=== PATIENT | male | born 1950 ===

== ENCOUNTER 2018-06-19 05:35 | Inpatient (IN) | payer MEDICARE ==
[~2018-06-19 05:35] MED LIST: Buffered Lidocaine 1% SYRIN* 1 ML/SYRINGE INTRADERM ONE; Tranexamic Acid 1,000 MG in NS 0.9% 50 ML* (outpatient use) IV SCH
--- OUTSIDE RECORDS SUMMARY | 2018-06-19 05:38 | XMS REPORT | Continuity of Care Document ---
:1950 External Reference #:[id number] Author Name ISIDRO Prieto Address [address], [place] [address] Care Team Providers Name Role Phone Travis Prather D.O. Primary Care Physician Unavailable Payers Type Date Identification Numbers Payment Provider Subscriber Policy Number: [id number] Medicare Alise Bates PayID: [id number] [address] [place] [address] Policy Number: [id number] [facility] Alise Bates PayID: [id number] [address] [place] [address] Advance Directives Description No Information Available Problems Date Description Provider Status Onset: 02/10/2016 Localized, primary osteoarthritis Bj Rodriguez M.D. Active Onset: 12/05/2015 Spinal stenosis of lumbar region Nick Connelly M.D. Active Family History Date Family Member(s) Problem(s) Comments General Cerebrovascular Accident (CVA) General Cancer Social History Type Date Description Comments Sex Unknown Lives With Occupation Retired ETOH Use Occasionally consumed alcohol in the past Tobacco Use Start: Unknown Patient has never smoked Recreational Drug Use Denies Drug Use Smoking Status Reviewed: 06/13/18 Patient has never smoked Exercise Type/Frequency Exercises sporadically Allergies, Adverse Reactions, Alerts Date Description Reaction Status Severity Comments 12/05/2015 Penicillin Active 12/05/2015 Statins Active Medications Medication Date Status Form Strength Qnty SIG Indications Ordering Provider Atenolol Active Tablets 50mg 1 by Unknown 000 mouth every day Levothyroxine Active Tablets 88mcg 1 by Unknown Sodium 000 mouth every day Meloxicam Active Tablets 15mg once Unknown 000 daily with food prn Aspirin Adult Active Tablets DR 81mg 1 by Unknown Low Dose 000 mouth every day Zyrtec Allergy Active Capsules 10mg 1 by Unknown 000 mouth every day Melatonin ER Active Tablets ER 5mg 1 tab by Unknown 000 mouth prn Magnesium Active Capsules 500mg 1 by Unknown 000 mouth every day prn Losartan Active Tablets 50mg 1 by Unknown Potassium 000 mouth every day Cinnamon Active Capsules 500mg 1 tab Unknown 000 bid Fish Oil Active Capsules DR 1200mg 2 caps Unknown 000 by mouth twice daily Pantoprazole Active Tablets DR 40mg 1 by Unknown Sodium 000 mouth every day Glucosamine Active Capsules 1500Com 1 by Unknown Chondroitin 1500 000 mouth Complex twice a day Nexium 24HR Hx Capsules DR 20mg 1 by Unknown 000 - mouth every 019 day prn Ranitidine HCL Hx Tablets 150mg take one Unknown 000 - tablet prn 018 [place] 3 Hx Capsules 1000mg 1 by Unknown 000 - mouth tid 018 Multi For Him Hx Tablets 1 by Unknown 50+ 000 - mouth every 018 day Vitamin C Hx Tablets 1000mg 1 by Unknown 000 - mouth every 018 day Vitamin E Hx Capsules 200Unit 2 by Unknown 000 - mouth every 018 day Immunizations Description No Information Available Vital Signs Date Vital Result Comment 06/13/2018 1:27pm Height 68 inches 5'8" Weight 234.00 lb Heart Rate 84 /min BP Systolic Recheck 144 mmHg BP Diastolic Recheck 86 mmHg Respiratory Rate 16 /min Body Temperature 98.3 F BMI (Body Mass Index) 35.6 kg/m2 05/12/2018 10:21am Height 68 inches 5'8" Weight 228.00 lb Heart Rate 76 /min BP Systolic Recheck 136 mmHg BP Diastolic Recheck 84 mmHg Respiratory Rate 16 /min Body Temperature 97.7 F BMI (Body Mass Index) 34.7 kg/m2 02/10/2016 1:38pm Height 68 inches 5'8" Weight 230.00 lb Heart Rate 76 /min BP Systolic Recheck 124 mmHg BP Diastolic Recheck 80 mmHg Respiratory Rate 16 /min Body Temperature 97.9 F BMI (Body Mass Index) 35.0 kg/m2 12/05/2015 11:34am Height 68 inches 5'8" Weight 245.31 lb Heart Rate 63 /min BP Systolic Sitting 132 mmHg BP Diastolic Sitting 84 mmHg Respiratory Rate 16 /min Body Temperature 98.1 F Pain Level 0 O2 % BldC Oximetry 96 % BMI (Body Mass Index) 37.3 kg/m2 02/09/2011 2:18pm Height 68 inches 5'8" Weight 250.00 lb Heart Rate 81 /min BP Systolic 162 mmHg BP Diastolic 98 mmHg BMI (Body Mass Index) 38.0 kg/m2 Results Test Date Facility Test Result H/L Range Note CBC Auto Diff 06/06/2018 [facility] White Blood 5.0 10^3/uL N 3.5-10.[address] [place] [address] [phone] Red Blood Count 5.16 10^6/uL N 4.00-5.40 Hemoglobin 16.1 g/dL N 14.0-18.0 Hematocrit 48 % N 42-52 Mean Corpuscular Volume 93 fL N 80-94 Mean Corpuscular Hemoglobin 31 pg N 27-31 Mean Corpuscular HGB Conc 34 g/dL N 31-36 Red Cell Distribution Width 14 % N 10.5-15 Platelet Count 186 10^3/uL N 150-450 Mean Platelet Volume 9.4 fL N 7.4-10.4 Abs Neutrophils 2.5 10^3/uL N 1.5-7.7 Abs Lymphocytes 2.0 10^3/uL N 1.0-4.8 Abs Monocytes 0.4 10^3/uL N 0-0.8 Abs Eosinophils 0.1 10^3/uL N 0-0.6 Abs Basophils 0 10^3/uL N 0-0.2 Abs Nucleated RBC 0 10^3/uL Granulocyte % 49.4 % Lymphocyte % 39.3 % Monocyte % 8.0 % Eosinophil % 2.7 % Basophil % 0.6 % Nucleated Red Blood Cells % 0.1 Inr/Protime 06/06/2018 [facility] Inr 0.94 N 0.77-1.02 [address] [place] [address] [phone] Laboratory test 06/06/2018 [facility] Partial 33.2 seconds N 26.0-36.3 finding [address] [facility] [place] [place] [address] PTT [phone] Comp Metabolic 06/06/2018 [facility] Sodium 135 mmol/L N 135- 145 Panel [address] [place] [address] [phone] Potassium 4.3 mmol/L N 3.5-5.0 Chloride 101 mmol/L N 101-111 Co2 Carbon Dioxide 27 mmol/L N 22-32 Anion Gap 7 mmol/L N 2-11 Glucose 141 mg/dL High 70-100 Blood Urea Nitrogen 28 mg/dL High 6-24 Creatinine 0.96 mg/dL N 0.67-1.17 BUN/Creatinine Ratio 29.2 High 8-20 Calcium 9.7 mg/dL N 8.6-10.3 Total Protein 7.2 g/dL N 6.4-8.9 Albumin 4.3 g/dL N 3.2-5.2 Globulin 2.9 g/dL N 2-4 Albumin/Globulin Ratio 1.5 N 1-3 Total Bilirubin 0.50 mg/dL N 0.2-1.0 Alkaline Phosphatase 55 U/L N 34-104 Alt 28 U/L N 7-52 Ast 20 U/L N 13-39 Egfr Non- 77.9 >60 Egfr 94.3 >60 1 Type & Screen 06/06/2018 [facility] Patient Blood Type O Negative [address] [place] [address] [phone] Antibody Screen NEGATIVE Urinalysis Profile 06/06/2018 [facility] Urine Color Yellow [address] [place] [address] [phone] Urine Appearance Clear Urine Specific [place] 1.026 N 1.010-1.030 Urine pH 5.0 N 5-9 Urine Urobilinogen Negative Negative Urine Ketones Negative Negative Urine Protein Negative Negative Urine Leukocytes Negative Negative Urine Blood 1+ Abnormal Negative Urine Nitrite Negative Negative Urine Bilirubin Negative Negative Urine Glucose Negative Negative Urine White Blood Cell Trace(0-5/hpf) Absent Urine Red Blood Cell 1+(3-5/hpf) Abnormal Absent Urine Bacteria Absent Absent Urine Culture And 06/06/2018 [facility] Urine Culture SEE RESULT [address] [place], [place] [address] [phone] 1 Because ethnic data is not always readily available, this report includes an eGFR for both -Americans and non- Americans. The National Kidney Disease Education Program (NKDEP) does not endorse the use of the MDRD equation for patients that are not between the ages of 18 and 70, are , have extremes of body size, muscle mass, or nutritional status, or are non- or non-. According to the National Kidney Foundation, irrespective of diagnosis, the stage of the disease is based on the level of kidney function: Stage Description GFR(mL/min/1.73 m(2)) 1 Kidney damage with normal or decreased GFR 90 2 Kidney damage with mild decrease in GFR 60-89 3 Moderate decrease in GFR 30-59 4 Severe decrease in GFR 15-29 5 Kidney failure <15 (or dialysis) 2 SEE RESULT BELOW Name: ALISE BATES Raphael : [address]: Bj Rodriguez MD Acct: [id number] Unit: [id number] AGE: 67 Location: [facility] Re06/06/18 SEX: M Status: REG REF SPEC: [id number] INDIRA: 06/06/18-[address]: Bj Rodriguez MD REQ: [id number] RECD: 06/06/18 STATUS: [facility] DR: Travis Prather DO _ SOURCE: URINE SPDESC: ORDERED: Urine Culture Procedure Result Reported Site Urine Culture Final 06/07/18- 0814 ML No Growth (<1,000 CFU/mL) * ML - Main Lab . END OF REPORT DEPARTMENT OF PATHOLOGY, [address] [place] [address] Hubert Hernandez M.D. Director [facility] # [id number] Procedures Date Code Description Status 02/09/2011 07154 Xray Knee 3 Views Completed 02/09/2011 62956 Xray Knee 3 Views Completed Encounters Type Date Location Provider Dx Diagnosis Office Visit 05/12/2018 Orthopedic Rajendra Valerio.0 Bilateral primary 10:30a [facility]rano osteoarthritis of AT [place] knee Office Visit 02/10/2016 Rajendra Auguste.0 Bilateral primary 1:30p [facility]rano osteoarthritis of AT [place] knee Office Visit 02/09/2011 Orthopedic Jose Means, 716.96 Arthropathy Unspec 2:00p Services Of Marcel[facility] Lower Leg MichelleMLex Plan of Treatment Future Appointment(s):07/18/2018 10:30 am - Bj Rodriguez M.D. at [facility] AT Gygqmhaz37/28/2019 7:30 am - ISIDRO Oliver at [facility] C.M.AInna06/19/2018 7:30 am - Bj Rodriguez M.D. at [facility] C.[facility].A.06/13/2018 - Bj Rodriguez M.D.M17.12 Unilateral primary osteoarthritis, left kneeFollow up:4 weeks after surgery
--- OUTSIDE RECORDS SUMMARY | 2018-06-19 05:38 | XMS REPORT | Continuity of Care Document ---
:1950 External Reference #:[id number] Author Name Karoline Frausto Care Team Providers Name Role Phone Travis Prather D.O. Primary Care Physician Unavailable Payers Type Date Identification Numbers Payment Provider Subscriber Policy Number: [id number] Medicare Alise Bates PayID: [id number] [address] [place] [address] Policy Number: [id number] [facility] Alise Bates PayID: [id number] [address] [place] [address] Advance Directives Description No Information Available Problems [...] one Unknown 000 - tablet prn 018 [place] 3 Hx Capsules 1000mg 1 by Unknown [...] H/L Range Note CBC Auto Diff 06/06/2018 [facility] White Blood 5.0 10^3/uL N 3.5-10.[address] [place] [address] [phone] Red Blood Count 5.16 10^6/uL N 4.00-5.40 [...] Red Blood Cells % 0.1 Inr/Protime 06/06/2018 [facility] Inr 0.94 N 0.77-1.[address] [place] [address] [phone] Laboratory test 06/06/2018 [facility] Partial 33.2 seconds N 26.0-36.3 finding 101 [facility] [place] [address] PTT [phone] Comp Metabolic 06/06/2018 [facility] Sodium 135 mmol/L N 135- 145 Panel [address] [place] [address] [phone] Potassium 4.3 mmol/L N 3.5-5.0 Chloride 101 [...] 94.3 >60 1 Type & Screen 06/06/2018 [facility] Patient Blood Type O Negative [address] [place] [address] [phone] Antibody Screen NEGATIVE Urinalysis Profile 06/06/2018 [facility] Urine Color Yellow [address] [place] [address] [phone] Urine Appearance Clear Urine Specific [place] 1.026 N 1.010-1.030 Urine pH 5.0 N 5-9 Urine Urobilinogen Negative Negative Urine Ketones Negative Negative Urine Protein Negative Negative Urine Leukocytes Negative Negative Urine Blood 1+ Abnormal Negative Urine Nitrite Negative Negative Urine Bilirubin Negative Negative Urine Glucose Negative Negative Urine White Blood Cell Trace(0-5/hpf) Absent Urine Red Blood Cell 1+(3-5/hpf) Abnormal Absent Urine Bacteria Absent Absent Urine Culture And 06/06/2018 [facility] Urine Culture SEE RESULT [address] [place] [address] [phone] 1 Because ethnic data is not always [...] 2 SEE RESULT BELOW Name: ALISE BATES : [address]: Bj Rodriguez MD Acct: [id number] Unit: [id number] AGE: 67 Location: [facility] Re06/06/18 SEX: M Status: REG REF SPEC: [id number] INDIRA: 06/06/18-[address]: Bj Rodriguez MD REQ: [id number] RECD: 06/06/18-1040 STATUS: [facility] DR: Travis Prather DO _ SOURCE: URINE SPDES: ORDERED: Urine Culture Procedure Result Reported Site Urine Culture Final 06/07/18- 08 ML No Growth (<1,000 CFU/mL) * ML - Main Lab . END OF REPORT DEPARTMENT OF PATHOLOGY, [address] [place] [address] Hubert Hernandez M.D. Director [facility] # [id number] Procedures Date Code Description Status 02/09/2011 18804 Xray Knee 3 Views Completed 02/09/2011 79246 Xray Knee 3 Views Completed Encounters Type Date Location Provider Dx Diagnosis Office Visit 05/12/2018 Orthopedic Rajendra Valerio.0 Bilateral primary 10:30a [facility] osteoarthritis of AT [place] knee Office Visit 02/10/2016 Orthopedic Cassidy Valerio Bilateral primary 1:30p [facility] Medrano osteoarthritis of AT [place] knee Office Visit 02/09/2011 Orthopedic Jose Means, 716.96 Arthropathy Unspec 2:00p Services [facility] Lower Leg Jessica Plan of Treatment Future Appointment(s):07/18/2018 10:30 am - Bj Rodriguez M.D. at [facility] AT Gpqnlxqq19/28/2019 7:30 am - ISIDRO Oliver at [facility] Of Romulo.MLex06/19/2018 7:30 am - Bj Rodriguez M.D. at [facility] Of C.M.AInna06/13/2018 - Bj Rodriguez M.D.M17.12 Unilateral primary osteoarthritis, left kneeFollow up:4 weeks after surgery
[2018-06-19] MEDS ORDERED: Gabapentin CAP(*) 300 MG PO ONE (06:00)
[2018-06-19] MEDS ORDERED: celeCOXIB CAP* 200 MG PO ONE (06:00)
[2018-06-19] MEDS ORDERED: Lactated Ringers 1000 ML Bag* 1,000 ML IV SCH (06:00)
[2018-06-19] MEDS ORDERED: celeCOXIB CAP* 100 MG PO ONE (06:00)
[2018-06-19] MEDS ORDERED: Acetaminophen IV 1GM/100ML * 1,000 MG/100 ML VIAL IVPB ONE (06:00)
[2018-06-19] MEDS ORDERED: Clindamycin 900 MG/D5W BAG(*) 900 MG/50 ML BAG IVPB ONE (06:32)
[2018-06-19] MEDS ORDERED: celeCOXIB CAP* 100 MG ONE (06:32)
[2018-06-19] MEDS ORDERED: Dexamethasone IV* 4 MG/ML 1 ML (4 MG) ONE (06:32)
[2018-06-19] MEDS ORDERED: Famotidine IV* 10 MG/ML 2 ML (20 mg) ONE (06:32)
[2018-06-19] MEDS ORDERED: Gabapentin CAP(*) 300 MG ONE (06:32)
[2018-06-19] MEDS ORDERED: Acetaminophen IV 1GM/100ML * 100 ML ONE (06:34)
[2018-06-19] MEDS ORDERED: Lidocaine 1% MPF wEPI 200,000* 30 ML SDV ONE (06:55)
[2018-06-19] MEDS ORDERED: Bupivacaine 0.5%* 50 ML VIAL ONE (06:55)
[2018-06-19] MEDS ORDERED: ceFAZolin 2 GM PREMIX in ORs 2 GM/50 ML BAG IVPB ONE (07:06)
[2018-06-19] MEDS: Famotidine IV* 10 MG/ML 2 ML (20 mg) IV SLOW PU ONE ×2 (07:12→15:12)
[2018-06-19] MEDS: Dexamethasone IV* 4 MG/ML 1 ML (4 MG) IV SLOW PU ONE ×2 (07:12→15:12)
[2018-06-19] MEDS ORDERED: Bupivacaine 0.5% SDV PF* 30ML VIAL ONE (07:16)
[2018-06-19] MEDS ORDERED: fentaNYL* 50 MCG/ML 2 ML VIAL (100 MCG VIAL) ONE ×2 (07:20→13:42)
[2018-06-19] MEDS ORDERED: Midazolam* 1 MG/ML 5 ML VIAL (5 MG) ONE ×3 (07:20→10:53)
[2018-06-19] MEDS ORDERED: KETAMINE HCL* 50 MG/ML 10 ML VIAL ONE (07:20)
[2018-06-19] MEDS ORDERED: ROPIVACAINE 5 MG/ML 30 ML BTL (0.5%) ONE (07:26)
[2018-06-19] MEDS ORDERED: HYDROmorphone INJ1* 1 MG/ML SYRINGE IV PRN (08:55)
[2018-06-19] MEDS ORDERED: Naloxone* 0.4 MG/ML 1 ML VIAL IV PRN (08:55)
[2018-06-19] MEDS ORDERED: Ondansetron INJ* 2 MG/ML VIAL IV PRN ×2 (08:55→10:15)
[2018-06-19] MEDS ORDERED: fentaNYL* 50 MCG/ML 2 ML VIAL (100 MCG VIAL) IV PRN (08:55)
[2018-06-19] MEDS ORDERED: DiMENhydriNATE IV* 50 MG/ML VIAL IV PUSH PRN (08:55)
[2018-06-19] MEDS ORDERED: Magnesium Hydroxide LIQ* 30 ML UDC PO PRN (10:15)
[2018-06-19] MEDS ORDERED: diPHENhydraMINE IV* 50 MG/ML 1 ml VIAL (BENADRYL) IV PRN (10:15)
[2018-06-19] MEDS ORDERED: Ondansetron ODT TAB* 4 MG PO PRN (10:15)
[2018-06-19] MEDS ORDERED: diPHENhydraMINE PO* 25 MG PO PRN (10:15)
[2018-06-19] MEDS ORDERED: PYRIDOXINE HCL PO PRN (10:21)
[2018-06-19] MEDS ORDERED: MELATONIN PO PRN (10:21)
[2018-06-19] MEDS ORDERED: Meloxicam(NF) 15 MG TAB PO PRN (10:21)
[2018-06-19] MEDS ORDERED: Gaviscon CHEW TAB* 1 TAB PO PRN (10:21)
[2018-06-19] MEDS ORDERED: Lidocaine 2% PF * 5 ML VIAL ONE (11:18)
[2018-06-19] MEDS ORDERED: Propofol* 10 MG/ML 20 ML BTL ONE ×2 (11:25→12:34)
--- NOTE | 2018-06-19 12:09 | OP ---
DATE OF OPERATION: 06/19/18 - ROOM #[id number] DATE OF : [birth year] SURGEON: Bj Rodriguez M.D. METAL MINE INSPECTOR: ISIDRO Gamino. ANESTHESIA: Regional/spinal/sedation. PRE-OP DIAGNOSIS: Osteoarthritis, left knee. POST-OP DIAGNOSIS: Osteoarthritis, left knee. OPERATIVE PROCEDURE: Left total knee arthroplasty. ESTIMATED BLOOD LOSS: Less than 50 cc. COMPLICATIONS: None. HARDWARE: Rosalio Persona #7 femur, F tibia, 13-mm polyethylene spacer, 35-mm all- polyethylene patellar button. INDICATIONS: Mr. Heart is a 67-year-old male who has had a long history of troubles with both of his knees. I discussed with him years ago that a total knee arthroplasty should work well to decrease his pain and improve his function. He has been having more pain and limitations, and by x-ray was completely [id number] in the medial compartment with spurs and sclerosis in all 3 compartments. Risks of surgery such as infection, scar formation, stiffness, DVT, pulmonary embolism, hardware failure, and continued pain were some of the risks discussed. He had been declared medically optimized and wished to proceed. DESCRIPTION OF PROCEDURE: The patient had a block placed in the holding area and was brought back to the OR. Spinal anesthesia was introduced. De Leon catheter was placed. Tourniquet was placed over the proximal left thigh and was used during the case. Total tourniquet time would be 61 minutes. Left knee was prepped and then draped. Katalina Fitzpatrick was present for the entire case from positioning, to prep, to drape, to the approach, placement of the instruments, placement of the prosthesis and closure. The case could not have been done without an assistance. Left knee was prepped and then draped. Esmarch was used to exsanguinate the leg and the tourniquet was raised. Skin over the incision layer was infiltrated using a mixture of 0.5% Marcaine and 1% lidocaine with epinephrine, 10 cc were used along the incision line, 20 cc were used posteriorly behind the knee, and another 20 cc was used in the lateral gutter. Midline incision was made and carried down through the skin and subcutaneous tissues. Small bleeders encountered were ligated using electrocautery. Extensor mechanism was exposed and a sharp parapatellar arthrotomy was made. Clear yellowish joint fluid spurted upwards. Soft tissues were sharply elevated from the medial side of the tibia and the fat pad were sharply excised. Patella measured 12 mm in thickness and a 9-mm cut was taken leaving approximately 13 mm. Patella was then easily subluxated laterally and the knee was flexed up. Nice exposure of the distal femur was obtained. It could be seen that he had polished bone on the media femoral condyle. Step drill was used to open the femoral canal and an intramedullary guide was placed. Outrigger was assembled and adjusted until it was parallel with the epicondylar axis and then the guide was pinned into place. Distal femoral cutting guide was pinned into place and then the intramedullary guide was removed. Distal femoral cut was taken and appeared a nice cut was obtained. The femur had been set to resect 2 mm and was set at 3 degrees. Femur was sized and he sat nicely for a 7. Cutting block was placed and using the superior drill hole, this came out nicely right over the top side of the femur. Anterior and posterior femoral cuts followed by the chamfer cut were all taken. Attention was turned to the tibia. Step drill was used to open the tibial canal and intramedullary guide was placed. Outrigger was assembled and adjusted until it appeared it would take 2 mm from the very worn medial side. I knew this would probably take a little extra bone on that side, but concerning his activity, I did not think we would get into troubles. Proximal tibial cut was taken and appeared a nice cut was obtained. Outrigger was placed and the tibial cut was appeared perfect, as the drop willard came right along the anterior spine of the tibia and pointed to the base of second metatarsal. There was, however, a little bit of wobble, as it could be seen that the femoral cut had taken a little bit more laterally and not enough on the medial side. Tibial recutter was placed on the femur and an additional 2 degrees was resected. Now, with a 12-spacer, he sat better and while he still had a little wobble, he was now even. Tibia was sized and he sat nicely for an F. Tibia was then drilled and punched. 7 trial was placed over the femur and the notch cut was finished, and stud holes were drilled. 12 trial polyethylene was placed and it could be seen where he had a little bit of wobble , but overall he had good stability and excellent motion. Patellar tracking was perfect even without the prosthesis. Patella was sized and he sat nicely for a 35. Holes were drilled and trial was snapped into place. Patellar tracking was still very good. Trial instrumentation was removed and cement was being prepared. Tibia followed by femur, and patella were all cemented into place. Excess cement was removed and the cement was allowed to harden. Once the cement had hardened, he was trialed with a 12 and then a 13, and I liked the 13 better, and he still flexed nicely and came out into full extension quite well. Knee was copiously pulse lavaged and then searched for additional cement. Few small pieces were found. 13 polyethylene was then snapped into place. The knee was again copiously pulse lavaged. Parapatellar arthrotomy was repaired using interrupted #1 Vicryl sutures. Tourniquet was let down and no significant bleeding was encountered. With motion, all stitches held with flexion and extension. Knee was again copiously pulse lavaged and the subcutaneous tissues were reapproximated with 2-0 Vicryl. Skin was closed using dominga. Sterile dressing and Cryo/Cuff were applied in the OR. The patient was then awakened and stable on transfer to the recovery room. [id number]/[facility] [place] #: [id number] NOELLE
[2018-06-19] MEDS: D5W 1/2 NS 1000 ML BAG* 1,000 ML IV SCH ×2 (13:06→23:53)
[2018-06-19] MEDS: Levothyroxine TAB* 88 MCG TAB PO SCH (15:13)
[2018-06-19] MEDS: ceFAZolin 1 GM ADVAN(*) 1 GM in NS 0.9% 50 ML* 50 ML IVPB SCH ×2 (15:22→22:40)
[2018-06-19] MEDS: Acetaminophen TAB* 325 MG PO SCH ×2 (15:22→22:39)
[2018-06-19] MEDS: oxyCODONE TAB* 5 MG TAB PO PRN ×3 (15:23→23:35)
[2018-06-19] MEDS: traMADol TAB* 50 MG PO SCH ×3 (15:30→22:39)
[2018-06-19] MEDS ORDERED: Warfarin TAB(*) 10 MG PO ONE (17:00)
[2018-06-19] MEDS: Docusate CAP* 100 MG PO SCH (19:30)
[2018-06-19] MEDS: Magnesium Hydroxide LIQ* 30 ML UDC PO SCH (19:30)
[2018-06-19] MEDS: CMC:OMEGA-3 FATTY ACIDS (NF) 1,000 MG CAP PO SCH (19:31)
[2018-06-19] MEDS: MSM PO SCH (19:34)
[2018-06-19] MEDS: MAGNESIUM PO SCH (19:34)
[2018-06-19] MEDS: GLUC SU PO SCH (19:34)
[2018-06-19] MEDS: VIT C PO SCH (19:34)
--- NOTE | 2018-06-19 20:18 | CONS ---
CC: Dr. Travis Prather; Dr. Rodriguez * CONSULTATION REPORT: DATE OF CONSULT: 06/19/18 PRIMARY CARE PROVIDER: Dr. Travis Prather from [facility]. REASON FOR CONSULTATION: Postoperative management of hypertension in patient with history of hypertension and recent left total knee surgery. CHIEF COMPLAINT: Left knee pain 5/10. HISTORY OF PRESENT ILLNESS: Leo Heart is a 67-year-old male with a history of osteoarthritis, obstructive sleep apnea, and hypothyroidism who presented to the hospital today for elective left knee repair. That was performed by Dr. Rodriguez today. Postoperatively, Dr. Rodriguez requested for the hospitalist service to evaluate this patient for postoperative management of patient's hypertension. PAST MEDICAL HISTORY: 1. Status post left knee total arthroplasty performed today by Dr. Rodriguez. 2. History of dyslipidemia. 3. Obstructive sleep apnea, on CPAP. 4. Hypertension. 5. Hypothyroidism, on Synthroid. 6. History of status post I and D of an abscess of the left second finger in 2014 that was MRSA positive. MEDICATIONS: At home include: 1. [employer]-3 fish oil 1 capsule b.i.d. 2. Mobic 15 mg on a p.r.n. basis. 3. Gaviscon 1 chewable 3 times a day p.r.n. 4. Melatonin 1 tablet at bedtime p.r.n. 5. Losartan 50 mg daily. 6. Levothyroxine 88 mcg daily. 7. Glucosamine Complex 1 capsule b.i.d. 8. Nexium 40 mg daily. 9. Cinnamon bark 2 capsules daily. 10. Cetirizine 10 mg a day. 11. Atenolol 50 mg daily. ALLERGIES: FENTANYL, LIDOCAINE, PENICILLINS and STATINS. FAMILY HISTORY: Positive for brother with history of heart disease. Father who of suicide at the age of 68. Mother with history of stroke who secondary to it; she also had history of a renal failure. SOCIAL HISTORY: The patient is retired. Denies any tobacco, alcohol, or drug use. He lives with his who is his surrogate. REVIEW OF SYSTEMS: Positive for left knee postoperative pain at 5/10. The patient also had a history of recent dental procedure performed and had been on doxycycline and Keflex in the past week that stopped prior to surgery. All the remaining 12 systems were reviewed with the patient and were otherwise negative. PHYSICAL EXAM: Blood pressure of 145/85, heart rate of 64 and regular, respiratory rate 16, oxygen saturation 97% on room air, temperature 97.1. General: The patient is a very pleasant 67-year-old male who is in no acute distress. Alert, awake, and oriented x3. HEENT: Head: Atraumatic, normocephalic. Eyes: Pupils are equal, reactive to light and accommodation. Oropharynx is clear. Mucosa moist. Neck: Supple. No JVD. No bruit bilaterally. Cardiovascular: Regular rate and rhythm. No murmur. Respiratory : Clear to auscultation bilaterally. Abdomen: Soft, nontender. Bowel sounds present in all 4 quadrants. Extremities: There is trace left ankle edema. Pulses are +2 bilaterally. There is no clubbing, cyanosis. The left knee is in Cryo unit postoperatively. The postoperative dressings were not removed to evaluate the left knee incision. Neuro Evaluation: Speech clear. Cranial nerves II through XII grossly intact. Motor strength is 5/5 bilaterally. LABORATORY DATA: Currently none. ASSESSMENT AND PLAN: 1. In regards to the patient's postoperative status after left knee surgery, that is going to be left to the orthopedic surgeons. 2. For DVT prophylaxis, the patient was placed on heparin subcutaneously and Coumadin. 3. In regards to the patient's hypertension control, the patient is going to be continued on losartan and atenolol as previously taken. 4. For the patient's hypothyroidism, Synthroid is going to be continued as the same doses at home. 5. For obstructive sleep apnea, CPAP is going to be utilized from home. 6. His code status is full. His surrogate is his . TIME SPENT: Approximately 55 minutes was spent on consultation of this patient , more than half that time was spent [id number] with the patient during the interview and physical exam. Thank you very much for allowing us to see the patient in consultation. We will see the patient postoperatively tomorrow. [id number]/[facility] #: [id number] NOELLE
[2018-06-20] MEDS: Morphine INJ* 2 MG/ML 1 ML SYRINGE (TWO MG - NEW SYRINGE VERSION) IV PRN ×3 (00:42→23:09)
[2018-06-20] MEDS: traMADol TAB* 50 MG PO SCH ×4 (05:13→23:08)
[2018-06-20] MEDS: Heparin VIAL(*) 5000 UNITS/ML VIAL (FIVE THOUSAND) SUBCUT SCH ×3 (05:15→21:08)
[2018-06-20 05:36] LABS: Hematocrit 43 % (42-52); Hemoglobin 14.3 g/dl (14.0-18.0); Platelet Count 148 10^3/ul (150-450)
[2018-06-20 05:41] LABS: INR 1.13 (0.77-1.02)
[2018-06-20 06:00] LABS: BUN/Creatinine Ratio 22.8 (8-20); Calcium 8.8 mg/dL (8.6-10.3); EGFR Non-African American 97.5 (>60); Potassium 4.1 mmol/L (3.5-5.0)
[2018-06-20] MEDS: ceFAZolin 1 GM ADVAN(*) 1 GM in NS 0.9% 50 ML* 50 ML IVPB SCH (06:25)
[2018-06-20] MEDS: oxyCODONE TAB* 5 MG TAB PO PRN ×4 (06:25→21:05)
[2018-06-20] MEDS: Acetaminophen TAB* 325 MG PO SCH ×3 (06:26→23:08)
[2018-06-20] MEDS: Losartan TAB* 25 MG PO SCH (08:16)
[2018-06-20] MEDS: Magnesium Hydroxide LIQ* 30 ML UDC PO SCH ×2 (08:16→21:07)
[2018-06-20] MEDS: Atenolol TAB* 50 MG PO SCH (08:17)
[2018-06-20] MEDS: GLUC SU PO SCH ×2 (08:17→21:11)
[2018-06-20] MEDS: VIT C PO SCH ×2 (08:17→21:11)
[2018-06-20] MEDS: Docusate CAP* 100 MG PO SCH ×2 (08:17→21:05)
[2018-06-20] MEDS: MAGNESIUM PO SCH ×2 (08:17→21:11)
[2018-06-20] MEDS: MSM PO SCH ×2 (08:17→21:11)
[2018-06-20] MEDS: Cetirizine* 10 MG TAB PO SCH (08:18)
[2018-06-20] MEDS: Pantoprazole TAB * 40 MG TAB PO SCH (08:18)
[2018-06-20] MEDS: CINNAMON BARK PO SCH (08:19)
[2018-06-20] MEDS: CMC:OMEGA-3 FATTY ACIDS (NF) 1,000 MG CAP PO SCH ×2 (08:19→21:06)
[2018-06-20] MEDS ORDERED: DOXYcycline CAP(*) 100 MG PO SCH (09:00)
[2018-06-20] MEDS ORDERED: PANTOPRAZOLE SODIUM 40 MG PO SCH (09:00)
--- NOTE | 2018-06-20 09:18 | PN ---
Progress Note - Progress Note Date of Service: 06/20/18 SOAP: Subjective: [Pt was seen this morning sitting up in bed eating breakfast. States pain is a 3 /10 and manageable. Has no complaints currently. Is interested in going home tomorrow. Denies any chest pain, SOB, nausea or vomiting. ] Objective: [General: Pt is alert and oriented x 3. NAD MSK, LLE: Dressing is c/d/i. +df/pf. calf is soft and non tender. Sensation is intact to light touch distally. 2+ DP pulse] Vital Signs Temp 96.9 F 06/20/18 07:42 Pulse 62 06/20/18 07:42 Resp 18 06/20/18 08:00 BP 117/62 06/20/18 07:42 Pulse Ox 98 06/20/18 08:00 Intake & Output 06/19/18 06/20/18 06/20/18 18:59 06:59 18:59 Intake Total 1999 1914 Output Total 3575 1875 Balance -1575 40 Intake: IV Fluids 1999 660 D5W 1/2 NS 660 LR 2000 IVPB 55 ABX - CEFAZOLIN 55 Oral 1200 Output: [place] 4291 1875 Estimated Blood Loss 50 Other: # Bowel Movements 0 Assessment: [POD 1 LTKA] Plan: [Continue with post op abx INR was 1.13 after 10mg of warfarin last night. Will continue with heparin subq and 10mg of warfarin tonight PT/OT today will consider discharge home should he meet all criteria tomorrow morning. ]
[2018-06-20] MEDS: Cyclobenzaprine TAB* 10 MG PO PRN ×2 (10:30→18:47)
--- NOTE | 2018-06-20 10:53 | PN ---
Subjective Date of Service: 06/20/18 Interval History: Pt did well with PT this AM. Now c/o left leg muscle spasm Objective Active Medications: Acetaminophen (Tylenol Tab*) 975 mg PO Q8H [facility] Last Admin: 06/20/18 06:26 Dose: 975 mg Al Hydroxide/Mg Trisilicate (Gaviscon Chew Tab*) 1 tab.chew PO TID PRN PRN Reason: NAUSEA Atenolol ([facility]ormin Tab*) [facility] [place] Last Admin: 06/20/18 08:17 Dose: 50 mg Cetirizine HCl (Zyrtec*) [facility] [place]; Protocol Last Admin: 06/20/18 08:18 Dose: 10 mg Cyclobenzaprine HCl (Flexeril Tab*) 10 mg PO TID PRN PRN Reason: SPASMS Last Admin: 06/20/18 10:30 Dose: 10 mg Diphenhydramine HCl (Benadryl Iv*) 25 mg IV Q6H PRN PRN Reason: itching Diphenhydramine HCl (Benadryl Po*) 25 mg PO Q6H PRN PRN Reason: itching Docusate Sodium (Colace Cap*) 100 mg PO BID [facility] Last Admin: 06/20/18 08:17 Dose: 100 mg Fish Oil (Fish Oil (Nf)) 1,000 mg PO BID [facility] Last Admin: 06/20/18 08:19 Dose: 1,000 mg Heparin Sodium (Porcine) (Heparin Vial(*)) 5,000 units SUBCUT Q8HR [facility] Last Admin: 06/20/18 05:15 Dose: 5,000 units Dextrose/Sodium Chloride (D5w 1/2 Ns 1000 Ml Bag*) 1,000 mls @ 100 mls/hr IV PER RATE [facility] Last Admin: 06/19/18 23:53 Dose: 100 mls/hr Lactulose (Lactulose*) 30 ml PO ONCE PRN PRN Reason: CONSTIPATION Levothyroxine Sodium (Synthroid Tab*) 88 mcg PO 1200 [facility] Last Admin: 06/19/18 15:13 Dose: Not Given Losartan Potassium (Cozaar Tab*) 50 mg PO QAM [facility] Last Admin: 06/20/18 08:16 Dose: 50 mg Magnesium Hydroxide (Milk Of Magnesia Liq*) 30 ml PO BID [facility] Last Admin: 06/20/18 08:16 Dose: 30 ml Magnesium Hydroxide (Milk Of Magnesia Liq*) 30 ml PO Q6H PRN PRN Reason: constipation Meloxicam (Mobic(Nf)) 15 mg PO DAILY PRN PRN Reason: PAIN Morphine Sulfate (Morphine Inj ((Syringe))*) 2 mg IV Q2H PRN PRN Reason: PAIN - BREAKTHROUGH Last Admin: 06/20/18 02:44 Dose: 2 mg Nf: Cinnamon Bark [ (Cinnamon] 2 Cap) 2 cap [facility] [place] Last Admin: 06/20/18 08:19 Dose: Not Given Nf:Gluc Fernandez/Msm/Magnesium/Vit C [ Glucosamine Complex- Msm Cap] 1 Each) 1 each PO BID [facility] Last Admin: 06/20/18 08:17 Dose: Not Given (Melatonin/Pyridoxine Hcl (B6) [Melatonin 5 Mg Tablet] 1 Tab) 1 tab PO BEDTIME PRN PRN Reason: SLEEP Ondansetron HCl (Zofran Inj*) 4 mg IV Q6H PRN PRN Reason: nausea Ondansetron HCl (Zofran Odt Tab*) 4 mg PO Q6H PRN PRN Reason: NAUSEA Oxycodone HCl (Roxycodone Tab*) 10 mg PO Q4H PRN PRN Reason: PAIN - SEVERE Last Admin: 06/20/18 06:25 Dose: 10 mg Pantoprazole Sodium (Protonix Tab*) [facility] [place]; Protocol Last Admin: 06/20/18 08:18 Dose: 40 mg Pharmacy Profile Note (Coumadin Daily Reminder*) 1 note FOLLOW UP 1700 [facility] Last Admin: 06/19/18 17:05 Dose: 1 note Tramadol HCl (Ultram*) 50 mg PO Q6H [facility] Last Admin: 06/20/18 10:30 Dose: 50 mg Warfarin Sodium (Coumadin Tab(*)) 10 mg PO ONCE@1700 [facility]; Protocol Stop: 06/20/18 17:01 Vital Signs - 8 hr 06/20/18 06/20/18 06/20/18 05:13 06:25 07:42 Temperature 96.9 F Pulse Rate 62 Respiratory 18 18 16 Rate Blood Pressure 117/62 (mmHg) O2 Sat by Pulse 98 Oximetry 06/20/18 06/20/18 08:00 10:30 Temperature Pulse Rate Respiratory 16 18 Rate Blood Pressure (mmHg) O2 Sat by Pulse 98 Oximetry Oxygen Devices in Use Now: None, CPAP Appearance: 67 yo M in NAD, aAOx3 Eyes: No Scleral Icterus, PERRLA Ears/Nose/Mouth/Throat: NL Teeth, Lips, Gums, Mucous Membranes Moist Neck: NL Appearance and Movements; NL JVP, Trachea Midline Respiratory: Symmetrical Chest Expansion and Respiratory Effort, Clear to Percussion Cardiovascular: NL Sounds; No Murmurs; No JVD, RRR Abdominal: NL Sounds; No Tenderness; No Distention, No Hepatosplenomegaly Lymphatic: No Cervical Adenopathy Extremities: No Edema, No Clubbing, Cyanosis Skin: No Nodules or Sclerosis, - - post op left knee incision covered with surgical dressings and cryo unit-not removed Neurological: Alert and Oriented x 3, NL Muscle Strength and Tone Result Diagrams: 06/20/18 05:22 06/20/18 05:22 Assess/Plan/Problems-Billing Assessment: 67 yo M with h/o HTN, SHITAL s/p left knee arthoplasty - Patient Problems (1) History of arthroplasty of left knee Comment: as per ortho (2) HTN (hypertension) Comment: controlled, cont losartan, atenolol (3) SHITAL (obstructive sleep apnea) Comment: cont home CPAP (4) DVT prophylaxis Comment: cont HSQ and warfarin as per ortho Status and Disposition: Thank you very much for consulting medicine. will sign off for now, please call prn
[2018-06-20] MEDS: Ketorolac INJ* 30 MG/ML 1 ML VIAL IV PUSH PRN ×2 (11:56→22:21)
[2018-06-20] MEDS: Levothyroxine TAB* 88 MCG TAB PO SCH (12:05)
[2018-06-20] MEDS ORDERED: Warfarin TAB(*) 10 MG PO ONE (17:00)
[2018-06-21] MEDS: oxyCODONE TAB* 5 MG TAB PO PRN ×2 (03:11→07:41)
[2018-06-21 05:19] LABS: Hematocrit 38 % (42-52); Hemoglobin 13.1 g/dl (14.0-18.0); Mean Platelet Volume 9.2 fL (7.4-10.4); Platelet Count 134 10^3/ul (150-450)
[2018-06-21] MEDS: traMADol TAB* 50 MG PO SCH ×2 (05:53→11:21)
[2018-06-21] MEDS: Heparin VIAL(*) 5000 UNITS/ML VIAL (FIVE THOUSAND) SUBCUT SCH (05:55)
[2018-06-21 06:00] LABS: INR 2.34 (0.77-1.02)
[2018-06-21] MEDS: Acetaminophen TAB* 325 MG PO SCH (07:41)
[2018-06-21] MEDS: Losartan TAB* 25 MG PO SCH (09:38)
[2018-06-21] MEDS: Atenolol TAB* 50 MG PO SCH (09:39)
[2018-06-21] MEDS: Pantoprazole TAB * 40 MG TAB PO SCH (09:39)
[2018-06-21] MEDS: CINNAMON BARK PO SCH (09:39)
[2018-06-21] MEDS: Cetirizine* 10 MG TAB PO SCH (09:39)
[2018-06-21] MEDS: MSM PO SCH (09:39)
[2018-06-21] MEDS: MAGNESIUM PO SCH (09:39)
[2018-06-21] MEDS: VIT C PO SCH (09:39)
[2018-06-21] MEDS: Docusate CAP* 100 MG PO SCH (09:39)
[2018-06-21] MEDS: GLUC SU PO SCH (09:39)
[2018-06-21] MEDS: CMC:OMEGA-3 FATTY ACIDS (NF) 1,000 MG CAP PO SCH (09:39)
[2018-06-21] MEDS: Magnesium Hydroxide LIQ* 30 ML UDC PO SCH (09:40)
--- NOTE | 2018-06-21 09:57 | PN ---
Progress Note - Progress Note Date of Service: 06/21/18 SOAP: Subjective: []Pt seen and examined at bedside. He feels well and desires DC to home. Denies CP, SOB, dizziness, nausea, LLE numbness. Objective: []General: Well appearing, NAD LLE: Left knee dressing changed, incision CDI without erythema or discharge, thigh is soft, DF/PF intact, DP2+, capillary refill less than two seconds distally Calves supple and nontender without erythema, edema or palpable cords Assessment: [][POD 1 LTKA Plan: [Continue with post op abx INR was 2.34 today, heparin until time of discharge, 4 mg coumadin today PT/OT today DC home today Resume normal diet, repeat Na tomorrow due to mild hyponatremia Vital Signs Temp 98.4 F 06/21/18 07:15 Pulse 70 06/21/18 07:15 Resp 18 06/21/18 09:40 BP 125/72 06/21/18 07:15 Pulse Ox 96 06/21/18 08:00 Intake & Output 06/20/18 06/21/18 06/21/18 18:59 06:59 18:59 Intake Total 1677 1750 240 Output Total 1000 1300 Balance 677 450 240 Intake: IV Fluids 1177 ABX - CEFAZOLIN 108 D5W 1/2 NS 1069 Oral 500 1750 240 Output: Urine 1000 1300 Other: Date of Last Bowel 06/19/18 Movement # Bowel Movements 1 Estimated Stool Amount Medium Laboratory Last Values Hgb 13.1 g/dl (14.0-18.0) L 06/21/18 05:07 Hct 38 % (42-52) L 06/21/18 05:07 Plt Count 134 10^3/ul (150-450) L 06/21/18 05:07 MPV 9.2 fL (7.4-10.4) 06/21/18 05:07 INR (Anticoag Therapy) 2.34 (0.77-1.02) H 06/21/18 05:07 Sodium 133 mmol/L (135-145) L 06/20/18 05:22 Potassium 4.1 mmol/L (3.5-5.0) 06/20/18 05:22 Chloride 100 mmol/L (101-111) L 06/20/18 05:22 Carbon Dioxide 29 mmol/L (22-32) 06/20/18 05:22 Anion Gap 4 mmol/L (2-11) 06/20/18 05:22 BUN 18 mg/dL (6-24) 06/20/18 05:22 Creatinine 0.79 mg/dL (0.67-1.17) 06/20/18 05:22 Est GFR ( Amer) 118.0 (>60) 06/20/18 05:22 Est GFR (Non-Af Amer) 97.5 (>60) 06/20/18 05:22 BUN/Creatinine Ratio 22.8 (8-20) H 06/20/18 05:22 Glucose 174 mg/dL (70-100) H 06/20/18 05:22 POC Glucose (mg/dL) 151 mg/dL (70-100) H 06/19/18 06:39 Calcium 8.8 mg/dL (8.6-10.3) 06/20/18 05:22
[2018-06-21 11:25] VITALS: BP 140/78
--- NOTE | 2018-06-22 14:54 | DS ---
AMENDED REPORT NOW INCLUDES COSIGNER DESIGNATION DATE OF ADMISSION: 06/19/2018. DATE OF DISCHARGE: 06/21/2018. ATTENDING PHYSICIAN: Dr. Bj Rodriguez * (dictated by ISIDRO Oliver). PREOPERATIVE DIAGNOSIS: Osteoarthritis of the left knee. OPERATIVE PROCEDURE: Left total knee arthroscopy. HISTORY OF PRESENT ILLNESS: Mr. Heart is a 67-year-old male with a long history of troubles with both knees. He has been having more trouble and limitations. By x-ray, he is completely [id number] on the medial compartment with spurs and sclerosis in all three compartments. He elected to undergo left total knee arthroplasty. HOSPITAL COURSE: The patient was admitted to [facility] on 2018. He underwent a left total knee arthroplasty without complication. Postop day one, he is well appearing and in no acute distress. Dressing was clean, dry and intact. Dorsiflexion and plantarflexion intact. Calf soft and nontender. Sensation is intact to light touch distally. DP 2+. He was also seen by our Hospitalist Service during his stay. No change in home medications. Postop day two, well- appearing, in no acute distress. Dressing changed and incision was clean, dry, and intact. He remained neurovascularly intact distally. Vital signs: Temperature 98.4, pulse 70, respiratory rate 18 , blood pressure 125/72, pulse ox 96. Hemoglobin 13.1, hematocrit 38, INR 2.34; sodium 133, potassium 4.1. The patient is deemed to be medically and orthopedically stable for discharge home. DISCHARGE MEDICATIONS: 1. Fish oil tab. 2. Melatonin tab. 3. Glucosamine Chondroitin tab. 4. Nexium 40 mg p.o. q.a.m. 5. Cetirizine 10 mg p.o. q.a.m. 6. Losartan 50 mg p.o. q.a.m. 7. Levothyroxine 88 mcg p.o. daily. 8. Atenolol 50 mg p.o. q.a.m. 9. Cinnamon bark two caps p.o. q.a.m. 10. Gaviscon one tab p.o. t.i.d. prn. 11. Pantoprazole 40 mg p.o. daily. 12. Docusate 100 mg p.o. b.i.d. prn constipation. 13. Oxycodone 5 mg tabs one to two tabs every 4 hours as needed for pain, max daily dose 4 per day. 14. Tramadol 50 mg every 6 hours, max of 8 tabs per day. 15. Warfarin 2 mg tabs 1 to 3 tabs daily, dose depends on INR. 16. Acetaminophen 975 mg p.o. q.8 hours prn. DISCHARGE INSTRUCTIONS: Weightbearing as tolerated. Make an appointment with the orthopedic office to remove dominga in 10 to 12 days and do a wound check. Go the lab for blood work for INR every Tuesday and for one month. Coumadin dosing 4 mg on June 21. Recheck INR on June 22 for further instructions. Repeat sodium level June 22. Pain control: Ultram 50 mg every six hours as needed for pain, max of eight tabs per day; Oxycodone 5 mg tabs one every four hours as needed for breakthrough pain, max four tabs per day. Follow-up with Dr. Rodriguez in four weeks. DISPOSITION: Discharge to home. ISIDRO NEWELL [id number]/[facility] #: [id number] NOELLE
== END 2018-06-21 12:08 | disposition home health service (06) | DRG 470 ==
LOC: AA 05:35 → SSU 13:01
PROVIDERS: ADMIT Orthopaedic Surgery; ATTEND Orthopaedic Surgery
PROC: 0SRD0J9 Replacement of Left Knee Joint with Synthetic Substitute, Cemented, Open Approach (ICD-10-PCS; principal; 2018-06-19 07:30)
DX: M17.0 Bilateral primary osteoarthritis of knee (principal); E87.1 Hypo-osmolality and hyponatremia; E78.2 Mixed hyperlipidemia; I10 Essential (primary) hypertension; G47.33 Obstructive sleep apnea (adult) (pediatric); K21.9 Gastro-esophageal reflux disease without esophagitis; E11.9 Type 2 diabetes mellitus without complications; E03.9 Hypothyroidism, unspecified; E66.9 Obesity, unspecified; Z82.49 Family history of ischemic heart disease and other diseases of the circulatory system; Z79.01 Long term (current) use of anticoagulants; Z68.35 Body mass index [BMI] 35.0-35.9, adult; Z88.0 Allergy status to penicillin; Z88.8 Allergy status to other drugs, medicaments and biological substances; Z82.3 Family history of stroke; Z84.1 Family history of disorders of kidney and ureter; M62.838 Other muscle spasm
CPT/HCPCS: 36415; 80048; 84300; 85014; 85018; 85049; 85610; A9270-GY; C1776; G8978-GP-CJ; G8979-GP-CI; G8987-GO-CJ; G8988-GO-CJ; G8989-GO-CJ; J0690; J1100; J1644; J1885; J2001; J2250; J2270; J2704; J2795; J3010

== ENCOUNTER 2020-01-07 07:53 | Observation (INO) ==
[~2020-01-07 07:53] MED LIST changes: +Buffered Lidocaine 1% SYRIN 1 ml INTRADERM ONE; -Buffered Lidocaine 1% SYRIN* 1 ML/SYRINGE INTRADERM ONE; +Lactated Ringers 1000 ml BAG 1,000 ML IV SCH; -Tranexamic Acid 1,000 MG in NS 0.9% 50 ML* (outpatient use) IV SCH
[2020-01-07] MEDS ORDERED: Buffered Lidocaine 1% SYRIN 1 ml INTRADERM ONE (08:18)
[2020-01-07] MEDS ORDERED: Famotidine IV 10 MG/ML 2 ml VIAL (20 mg) ONE (09:21)
[2020-01-07] MEDS ORDERED: Famotidine IV 10 MG/ML 2 ml VIAL (20 mg) IV ONE (09:23)
[2020-01-07] MEDS ORDERED: ceFAZolin 2 GM in NS PREMIX 2 GM/100 ML BAG IVPB ONE (10:53)
[2020-01-07] MEDS ORDERED: fentaNYL 250 mcg/5 ml 50 MCG/ML 5 ml VIAL (250 MCG) ONE (11:13)
[2020-01-07] MEDS ORDERED: Propofol 10 MG/ML 20 ML BTL ONE (11:13)
[2020-01-07] MEDS ORDERED: Rocuronium 50 mg VIAL 10 mg/ml 5 ml VIAL (50 mg) ONE (11:13)
[2020-01-07] MEDS ORDERED: Midazolam 2 mg/2 ml VIAL 1 mg/ml 2 ml VIAL (2 mg) ONE (11:13)
[2020-01-07] MEDS ORDERED: ROPIVACAINE 5 MG/ML 30 ML BTL (0.5%) ONE (11:17)
[2020-01-07] MEDS ORDERED: Vancomycin 1,000 MG VIAL ONE (11:56)
[2020-01-07] MEDS ORDERED: EPHEDrine (Pressors) 50 MG/ML VIAL ONE (12:07)
[2020-01-07] MEDS ORDERED: HYDROmorphone 1 MG/1 ML SYRINGE ONE ×2 (13:10→13:58)
[2020-01-07] MEDS ORDERED: Naloxone 0.4 mg VIAL 0.4 mg/ml 1 ml VIAL IV PRN (13:27)
[2020-01-07] MEDS ORDERED: diPHENhydraMINE 25 mg TAB PO PRN ×2 (13:55→14:06)
[2020-01-07] MEDS ORDERED: Morphine 2 MG/ML SYRINGE IV PRN (13:55)
[2020-01-07] MEDS ORDERED: Magnesium Hydroxide LIQ 30 ML UDC PO PRN (13:55)
[2020-01-07] MEDS ORDERED: Lactulose 30 ml UDC PO PRN (13:55)
[2020-01-07] MEDS ORDERED: diPHENhydraMINE IV 50 MG/ML 1 ml VIAL (BENADRYL) IV PRN (13:55)
[2020-01-07] MEDS ORDERED: Ondansetron ODT 4 mg TAB 4 MG TAB PO PRN (13:55)
[2020-01-07] MEDS ORDERED: Ondansetron 4 mg VIAL 2 MG/ML 2 ml VIAL ONE (13:57)
[2020-01-07] MEDS: HYDROmorphone 1 MG/1 ML SYRINGE IV PRN ×5 (13:58→14:15)
[2020-01-07] MEDS ORDERED: D5W 1/2 NS 1000 ml BAG 1,000 ML IV SCH (14:00)
[2020-01-07] MEDS ORDERED: Gaviscon CHEW TAB PO PRN (14:06)
[2020-01-07] MEDS ORDERED: Dextrose 50% Syringe 50 ml 25 GM/50 ML SYRINGE IV PUSH PRN (14:09)
[2020-01-07] MEDS: Ondansetron 4 mg VIAL 2 MG/ML 2 ml VIAL IV PRN ×2 (16:15→21:34)
[2020-01-07] MEDS: ceFAZolin 1 GM ADVAN 1 GM in NS 0.9% 50 ML 50 ML IVPB SCH (20:25)
[2020-01-07] MEDS: Magnesium Hydroxide LIQ 30 ML UDC PO SCH (22:21)
[2020-01-08] MEDS: ceFAZolin 1 GM ADVAN 1 GM in NS 0.9% 50 ML 50 ML IVPB SCH ×2 (04:13→12:00)
[2020-01-08 06:04] LABS: Hematocrit 39 % (42-52); Hemoglobin 13.6 g/dL (14.0-18.0); Mean Platelet Volume 8.6 fL (7.4-10.4); Platelet Count 145 10^3/uL (150-450)
[2020-01-08 06:22] LABS: Calcium 8.3 mg/dL (8.6-10.3); EGFR Non-African American 94.2 (>60)
[2020-01-08] MEDS: Magnesium Hydroxide LIQ 30 ML UDC PO SCH (08:54)
[2020-01-08] MEDS ORDERED: Aspirin EC 81 mg TAB.EC (enteric coated) PO SCH (09:00)
[2020-01-08] MEDS ORDERED: Vitamin THERAPEUTIC TAB PO SCH (09:00)
[2020-01-08 11:40] VITALS: BP 109/62
[2020-01-10] MEDS ORDERED: Scopolamine PATCH Remove NOTE PATCH OFF ONE (18:24)
== END 2020-01-08 13:50 | disposition home or self-care (01) ==
LOC: OR 07:53 → SSU 15:24 → INTOOBSV 15:24
PROVIDERS: ADMIT Physician Assistant; ATTEND Orthopaedic Surgery